=== PATIENT | female | born 1970 | race American Indian/Alaskan Native ===

== ENCOUNTER 2019-11-09 19:19 | Emergency (ER) | payer OTHER ==
--- NOTE | 2019-11-09 22:04 | Event Note ---
ED Screening Note ED Screening Note: states she has a hemorrhoid had a BM yesterday and states she had blood present in the toliet states she saw it yesterday as well states she has been using a hemorrhoid cream twice no n/v/d no fever PMHx none no allergies to meds went through menopause This initial assessment/diagnostic orders/clinical plan/treatment(s) is/are subject to change based on patients health status, clinical progression and re- assessment by fellow clinical providers in the ED. Further treatment and workup at subsequent clinical providers discretion. Patient/guardian urged not to elope from the ED as their condition may be serious if not clinically assessed and managed. Initial orders include: labs
--- NOTE | 2019-11-10 01:11 | Emergency Department Report ---
ED GI Bleed HPI - General Chief complaint: GI Bleed Stated complaint: BLOOD IN STOOL Time Seen by Provider: 11/09/19 22:01 Source: patient Mode of arrival: Ambulatory Limitations: No Limitations - History of Present Illness Initial comments: 48 y/o female states she has a hemorrhoid had a BM yesterday and states she had blood present in the toliet states she saw it yesterday as well states she has been using a hemorrhoid cream twice no n/v/d no fever PMHx none no allergies to meds went through menopause MD complaint: blood streaked stool Onset/Timin -: days(s) (with only two bowel movement) Severity scale (0 -10): 0 Quality: painless Consistency: intermittent Improves with: none Context: hemorrhoids Associated Symptoms: denies: abdominal pain, nausea, vomiting, headaches, malaise, shortness of breath, weakness ED Review of Systems ROS: Stated complaint: BLOOD IN STOOL Other details as noted in HPI Comment: All other systems reviewed and negative Respiratory: denies: shortness of breath Cardiovascular: denies: chest pain Neurological: denies: headache, weakness, paresthesias, abnormal gait, vertigo ED Past Medical Hx - Past Medical History Previous Medical History?: No - Surgical History Past Surgical History?: No - Social History Smoking Status: Never Smoker Substance Use Type: None ED Physical Exam - General Limitations: No Limitations General appearance: alert, in no apparent distress - Head Head exam: Present: atraumatic, normocephalic - Eye Eye exam: Present: normal appearance, EOMI. Absent: scleral icterus - ENT ENT exam: Present: mucous membranes moist - Respiratory Respiratory exam: Present: normal lung sounds bilaterally. Absent: respiratory distress - Cardiovascular Cardiovascular Exam: Present: regular rate, normal rhythm. Absent: systolic murmur, diastolic murmur, rubs, gallop - GI/Abdominal GI/Abdominal exam: Present: soft. Absent: distended, tenderness - Rectal Rectal exam: Present: normal inspection, normal rectal tone, heme (-) stool - Extremities Exam Extremities exam: Present: normal inspection, full ROM - Neurological Exam Neurological exam: Present: alert, oriented X3, normal gait - Psychiatric Psychiatric exam: Present: normal affect, normal mood - Skin Skin exam: Present: warm, dry, intact, normal color. Absent: rash ED Course Vital Signs 11/09/19 20:11 Temperature 98.3 F Pulse Rate 71 Respiratory 18 Rate Blood Pressure 117/81 [Right] O2 Sat by Pulse 99 Oximetry ED Medical Decision Making - Medical Decision Making 48 y/o female states she has a hemorrhoid had a BM yesterday and states she had blood present in the toliet states she saw it yesterday as well states she has been using a hemorrhoid cream twice no n/v/d no fever PMHx none no allergies to meds went through menopause Critical care attestation.: If time is entered above; I have spent that time in minutes in the direct care of this critically ill patient, excluding procedure time. ED Disposition Clinical Impression: Internal hemorrhoid, bleeding Disposition: - TO HOME OR SELFCARE Is pt being admited?: No Does the pt Need Aspirin: No Condition: Stable Instructions: Rectal Bleeding (ED), Hemorrhoids (ED) Additional Instructions: Continued use of [id number] hemorrhoidal cream. Follow up with the colorectal specialist or a lecturer in computer science I have listed below. Referrals: PRIMARY CARE, [Primary Care Provider] - 3-5 Days [facility] [Provider Group] - 3-5 Days Forms: Accompanied Note
[2019-11-10 03:01] VITALS: BP 114/78
== END 2019-11-10 03:07 | disposition home or self-care (01) ==
LOC: ED 19:19
DX: K64.8 Other hemorrhoids (principal)
CPT/HCPCS: 82270; 99283